=== PATIENT | female | born 1985 | race Caucasian/White ===

== ENCOUNTER 2018-02-19 15:03 | Emergency (ER) | payer BC, MEDICAID ==
[~2018-02-19] VITALS: Ht 157.5 cm; Wt 67.0 kg
[~2018-02-19 15:03] MED LIST: METF500T PO; RANI-366 PO
[2018-02-19 15:57] LABS: BASOPHILS % (AUTO) 0.5 % (0-1); EOSINOPHILS % (AUTO) 0.8 % (0-6); HEMATOCRIT 42.3 % (35.0-45.0); HEMOGLOBIN 13.9 g/dl (12.0-16.0); LYMPHOCYTES # (AUTO) 0.6 X10'3 (1.1-4.8); LYMPHOCYTES % (AUTO) 12.7 % (21-51); MEAN CORPUSCULAR HEMOGLOBIN 26.4 PG (27.0-31.0); MEAN CORPUSCULAR HGB CONC 32.9 % (33.0-36.5); MEAN CORPUSCULAR VOLUME 80.3 FL (78-98); MEAN PLATELET VOLUME 10.2 FL (7.4-10.4); MONOCYTES # (AUTO) 0.3 X10'3 (0-0.9); MONOCYTES % (AUTO) 6.1 % (2-12); NEUTROPHILS # (AUTO) 3.6 X10'3 (1.8-7.7); NEUTROPHILS % (AUTO) 79.9 % (42-75); PLATELET COUNT 166 X10'3 (140-440); RED BLOOD COUNT 5.26 X10'6 (4.20-5.60); RED CELL DISTRIBUTION WIDTH 13.4 % (11.5-14.5); WHITE BLOOD COUNT 4.5 X10'3 (4.5-11.0)
[2018-02-19 15:59] LABS: URINE HCG POSITIVE (NEG)
[2018-02-19 16:03] LABS: CLARITY,URINE SLIGHTLY CLOUDY (Clear); COLOR,URINE YELLOW (Yellow); GLUCOSE, URINE >=1000 mg/dl (Neg); KETONES,URINE 40 mg/dl (Neg); LEUKOCYTE ESTERASE ,URINE NEGATIVE (Neg); NITRITES, URINE NEGATIVE (Neg); OCCULT BLOOD,URINE NEGATIVE (Neg); PROTEIN,URINE NEGATIVE (Neg); UROBILINOGEN,URINE 0.2 E.U/dL (0.2-1.0)
[2018-02-19 16:04] LABS: UA COLLECTION TYPE CLN CATCH MIDSTREAM
[2018-02-19 16:10] LABS: ALANINE AMINOTRANSFERASE 26 U/L (12-78); ALBUMIN 3.9 G/DL (3.4-5.0); ALKALINE PHOSPHATASE 63 IU/L (46-116); ANION GAP 8 (8-16); ASPARTATE AMINO TRANSFERASE 17 U/L (10-37); BILIRUBIN,TOTAL 0.5 MG/DL (0.1-1.0); BLOOD UREA NITROGEN 17 MG/DL (7-18); CALCIUM 8.3 MG/DL (8.5-10.1); CHLORIDE 97 MMOL/L (99-107); CREATININE 0.68 MG/DL (0.40-0.90); GLUCOSE 284 MG/DL (70-104); LIPASE < 50 U/L (73-393); POTASSIUM 3.4 MMOL/L (3.5-5.1); SODIUM 132 MMOL/L (135-145); TOTAL CARBON DIOXIDE 26.6 MMOL/L (24-32); TOTAL PROTEIN 7.9 G/DL (6.4-8.2); eGFR > 90 ML/MIN
[2018-02-19 16:11] LABS: MUCUS STRANDS MODERATE /LPF (Neg); SQUAMOUS EPITHELIAL CELL,UR MANY /LPF (FEW)
[2018-02-19 16:12] LABS: BACTERIA,URINE 1+ /HPF (Neg); RBC,URINE 0-2 /HPF (0-2); WBC,URINE 0-4 /HPF (0-4)
[2018-02-19 16:12] LABS: HCG SERUM QL POSITIVE
[2018-02-19 16:23] LABS: PROTHROMBIN TIME 10.7 SECONDS (9.0-12.0)
[2018-02-19] MEDS ORDERED: normal saline 1000ml 1,000 ML IV ONE (17:10)
[2018-02-19] MEDS ORDERED: potassium 10mEq/100ml NS w/LIDOcaine (10mg/bag) IV ONE (17:10)
[2018-02-19] MEDS ORDERED: potassium Cl 20 mEq SR tablet PO ONE (17:10)
[2018-02-19] MEDS ORDERED: metoclopramide 5 mg/ml inj IV ONE (17:35)
[2018-02-19] MEDS ORDERED: normal saline 1000ML IV soln IVB ONE (19:00)
[2018-02-19] MEDS ORDERED: GLYB2.5T4 PO (19:35)
[2018-02-19] MEDS ORDERED: insulin regular, human 10 units/0.1 ml syringe IV ONE (19:50)
[2018-02-19 19:58] VITALS: BP 114/79
[2018-02-19] MEDS ORDERED: diphenhydrAMINE 50 mg/ml inj IM ONE (20:50)
[2018-02-19] MEDS ORDERED: proCHLORperazine 10 MG/2 ml inj IM ONE (20:50)
[2018-02-19] MEDS ORDERED: PROC5TAB56 PO (20:53)
[2018-02-19] MEDS ORDERED: PROM25SU46 RC (20:53)
== END 2018-02-19 20:39 | disposition home or self-care (01) ==
LOC: ER 15:04
DX: O24.911 Unspecified diabetes mellitus in pregnancy, first trimester (principal); E11.65 Type 2 diabetes mellitus with hyperglycemia; O26.891 Other specified pregnancy related conditions, first trimester; R10.10 Upper abdominal pain, unspecified; Z90.49 Acquired absence of other specified parts of digestive tract; Z88.8 Allergy status to other drugs, medicaments and biological substances; Z79.84 Long term (current) use of oral hypoglycemic drugs; Z79.899 Other long term (current) drug therapy; Z3A.01 Less than 8 weeks gestation of pregnancy
CPT/HCPCS: 36415; 80053; 81001; 81025; 82948; 83690; 84703; 85025; 85610; 96361; 96372; 96374; 96375; 99285; J0780; J1200; J1815; J2765; J3480; J7030

== ENCOUNTER 2019-09-04 16:51 | Emergency (ER) | payer MEDICAID ==
[~2019-09-04] VITALS: Ht 154.9 cm; Wt 86.4 kg
[~2019-09-04 16:51] MED LIST changes: +GLYB2.5T4 PO; +PROC5TAB56 PO; +PROM25SU46 RC
[2019-09-04] MEDS ORDERED: normal saline 1000ML IV soln IVB ONE (17:25)
[2019-09-04] MEDS ORDERED: ketorolac tromethamine 15mg/ml inj. IV ONE (17:25)
[2019-09-04 17:51] LABS: BASOPHILS % (AUTO) 0.5 % (0-1); EOSINOPHILS % (AUTO) 0.4 % (0-6); HEMATOCRIT 38.6 % (35.0-45.0); LYMPHOCYTES # (AUTO) 0.5 X10'3 (1.1-4.8); LYMPHOCYTES % (AUTO) 7.6 % (21-51); MEAN CORPUSCULAR HEMOGLOBIN 26.3 PG (27.0-31.0); MEAN CORPUSCULAR HGB CONC 33.8 g/dL (33.0-36.5); MEAN CORPUSCULAR VOLUME 77.9 FL (78-98); MEAN PLATELET VOLUME 9.6 FL (7.4-10.4); MONOCYTES # (AUTO) 0.3 X10'3 (0-0.9); MONOCYTES % (AUTO) 5.3 % (2-12); NEUTROPHILS # (AUTO) 5.5 X10'3 (1.8-7.7); NEUTROPHILS % (AUTO) 86.2 % (42-75); PLATELET COUNT 195 X10'3 (140-440); RED BLOOD COUNT 4.95 X10'6 (4.20-5.60); RED CELL DISTRIBUTION WIDTH 15.1 % (11.5-14.5); WHITE BLOOD COUNT 6.4 X10'3 (4.5-11.0)
[2019-09-04 17:57] LABS: ALANINE AMINOTRANSFERASE 24 U/L (12-78); ALBUMIN 4.1 G/DL (3.4-5.0); ALBUMIN/GLOBULIN RATIO 0.9 (1.1-1.5); ALKALINE PHOSPHATASE 102 IU/L (46-116); ANION GAP 10 (8-16); ASPARTATE AMINO TRANSFERASE 16 U/L (10-37); BILIRUBIN,TOTAL 0.3 MG/DL (0.1-1.0); BLOOD UREA NITROGEN 17 MG/DL (7-18); BUN/CREATININE RATIO 21.8 (6.6-38.0); CALCIUM 8.8 MG/DL (8.5-10.1); CHLORIDE 101 MMOL/L (99-107); CREATININE 0.78 MG/DL (0.40-0.90); GLUCOSE 124 MG/DL (70-104); LIPASE < 50 U/L (73-393); POTASSIUM 3.7 MMOL/L (3.5-5.1); SODIUM 136 MMOL/L (135-145); TOTAL CARBON DIOXIDE 25.5 MMOL/L (24-32); TOTAL PROTEIN 8.8 G/DL (6.4-8.2); eGFR 85 ML/MIN
[2019-09-04 18:22] LABS: CLARITY,URINE CLEAR (Clear); COLOR,URINE YELLOW (Yellow); GLUCOSE, URINE NEGATIVE (Neg); KETONES,URINE NEGATIVE (Neg); LEUKOCYTE ESTERASE ,URINE SMALL (Neg); NITRITES, URINE NEGATIVE (Neg); OCCULT BLOOD,URINE NEGATIVE (Neg); PROTEIN,URINE NEGATIVE (Neg); UROBILINOGEN,URINE 0.2 E.U/dL (0.2-1.0)
[2019-09-04 18:33] LABS: UA COLLECTION TYPE CLN CATCH MIDSTREAM
[2019-09-04 18:34] LABS: BACTERIA,URINE FEW /HPF (Neg); RBC,URINE NONE SEEN /HPF (0-2); SQUAMOUS EPITHELIAL CELL,UR FEW /LPF (FEW)
[2019-09-04] MEDS ORDERED: CefTRIAXone 1000mg IM Kit (w/lidocaine diluent) IM ONE (19:30)
[2019-09-04 19:32] VITALS: BP 116/68
[2019-09-04] MEDS ORDERED: CEPH-572 PO (19:33)
[2019-09-04] MEDS ORDERED: ONDA4TAB6 PO (19:46)
== END 2019-09-04 19:49 | disposition home or self-care (01) ==
LOC: ER 16:52
DX: N39.0 Urinary tract infection, site not specified (principal); R11.2 Nausea with vomiting, unspecified; E11.9 Type 2 diabetes mellitus without complications; Z90.49 Acquired absence of other specified parts of digestive tract; Z98.890 Other specified postprocedural states; Z88.6 Allergy status to analgesic agent; Z79.84 Long term (current) use of oral hypoglycemic drugs; Z79.899 Other long term (current) drug therapy
CPT/HCPCS: 36415; 80053; 81001; 82948; 83690; 85025; 87088; 87502; 87503; 96372; 96374; 99284; J0696; J1885; J7030

== ENCOUNTER 2020-12-07 07:27 | Day surgery (SDC) | payer MEDICAID ==
[2020-11-30 12:08] LABS: BASOPHILS % (AUTO) 0.4 % (0-1); EOSINOPHILS # (AUTO) 0.1 X10'3 (0-0.9); EOSINOPHILS % (AUTO) 1.1 % (0-6); LYMPHOCYTES # (AUTO) 1.8 X10'3 (1.1-4.8); LYMPHOCYTES % (AUTO) 28.3 % (21-51); MEAN CORPUSCULAR HEMOGLOBIN 25.9 PG (27.0-31.0); MEAN CORPUSCULAR VOLUME 78.4 FL (78-98); MEAN PLATELET VOLUME 9.3 FL (7.4-10.4); MONOCYTES # (AUTO) 0.5 X10'3 (0-0.9); MONOCYTES % (AUTO) 7.6 % (2-12); NEUTROPHILS # (AUTO) 3.9 X10'3 (1.8-7.7); NEUTROPHILS % (AUTO) 62.6 % (42-75); PRE OP HEMOGLOBIN 12.2 g/dL (12.0-16.0); PRE OP PLATELET COUNT 232 X10'3 (140-440); RED BLOOD COUNT 4.72 X10'6 (4.20-5.60)
[2020-11-30 12:18] LABS: CLARITY,URINE SLIGHTLY CLOUDY (Clear); COLOR,URINE STRAW (Yellow); GLUCOSE, URINE NEGATIVE (Neg); KETONES,URINE NEGATIVE (Neg); LEUKOCYTE ESTERASE ,URINE SMALL (Neg); NITRITES, URINE NEGATIVE (Neg); OCCULT BLOOD,URINE NEGATIVE (Neg); PROTEIN,URINE NEGATIVE (Neg); UROBILINOGEN,URINE 0.2 E.U/dL (0.2-1.0)
[2020-11-30 12:23] LABS: HEMOGLOBIN A1C 7.4 % (4.5-6.2)
[2020-11-30 12:24] LABS: UA COLLECTION TYPE CLN CATCH MIDSTREAM
[2020-11-30 12:25] LABS: BACTERIA,URINE FEW /HPF (Neg); RBC,URINE 0-2 /HPF (0-2); SQUAMOUS EPITHELIAL CELL,UR FEW /LPF (FEW); WBC,URINE 0-4 /HPF (0-4)
[2020-11-30 12:41] LABS: ALBUMIN 3.9 G/DL (3.4-5.0); ALBUMIN/GLOBULIN RATIO 0.8 (1.1-1.5); ALKALINE PHOSPHATASE 72 IU/L (46-116); BLOOD UREA NITROGEN 20 MG/DL (7-18); CALCIUM 9.4 MG/DL (8.5-10.1); CHLORIDE 102 MMOL/L (99-107); PRE OP ALT 19 U/L (30-65); PRE OP ANION GAP 8 (8-16); PRE OP AST 11 U/L (10-37); PRE OP BILIRUB, TOTAL 0.3 MG/DL (0.0-1.0); PRE OP GLUCOSE 108 MG/DL (70-104); PRE OP POTASSIUM 3.8 MMOL/L (3.4-5.1); PRE OP SODIUM 135 MMOL/L (135-145); TOTAL CARBON DIOXIDE 25.5 MMOL/L (24-32); TOTAL PROTEIN 9.1 G/DL (6.4-8.2); eGFR 82 ML/MIN
[2020-11-30 12:58] LABS: HCG SERUM QL NEGATIVE
[2020-12-07] VITALS (18 sets, daily range): BP systolic 108–144; BP diastolic 54–78
[~2020-12-07] VITALS: Ht 154.9 cm; Wt 88.8 kg
[~2020-12-07 07:27] MED LIST changes: +ACET-1025 PO; +CHOL50004 PO; -GLYB2.5T4 PO; +INSU100C10 SQ; +INSU100I31 SQ; +LEVO25TA7 PO; +LORA10TA7 PO; -METF500T PO; -PROC5TAB56 PO; -PROM25SU46 RC; -RANI-366 PO; +ceFOXitin 2GM-NS 100mL ADDvant 100 ML IV ONE; +famotidine 20mg tablet PO ONE; +ringers solution, lacted 1,000 ML IV SCH
--- NOTE | 2020-12-07 08:15 | NUR ---
MD BARRERA NOTIFIED OF BG 200 AT [id number]. PT. DRANK JUICE THIS MORNING AT 0545 IN FEAR OF BG DROPPING TOO LOW. WILL RECHECK AT 0840. Addendum: 12/07/20 at 0835 by Katherine Fontana RN Amended: Links added.
--- NOTE | 2020-12-07 08:40 | NUR ---
BG 192. HOLLY DAVIS. NO NEW ORDERS NOTED. Addendum: 12/07/20 at 0844 by Katherine Fontana RN Amended: Links added.
[2020-12-07] MEDS ORDERED: neomy sulf/polymyxin B sulf. GU irrigation 1ml amp IR ONE (09:14)
[2020-12-07] MEDS ORDERED: BUPIVAcaine HCl 0.25%/EPInephrine 1:200,000 inj. 10 ML VIAL ONE (09:14)
[2020-12-07] MEDS ORDERED: vasoPRESSIN 20 units/ml inj. ONE (09:14)
[2020-12-07] MEDS ORDERED: BUPIVAcaine/PF 2.5 mg/ml (0.25%) 30ml vial ONE (09:14)
[2020-12-07] MEDS ORDERED: sevoflurane 250ml liquid IH ONE (10:25)
[2020-12-07] MEDS ORDERED: morphine 4 MG/ML inj SYRINge IV PRN (10:25)
[2020-12-07] MEDS ORDERED: morphine 2 MG/ML inj. syringe IV PRN (10:25)
[2020-12-07] MEDS ORDERED: meperidine/PF 25mg/ml syringe IV PRN ×3 (10:25)
[2020-12-07] MEDS ORDERED: ringers solution, lacted 1,000 ML IV SCH (10:25)
[2020-12-07] MEDS ORDERED: hydrALAZINE 20mg/ml inj. IV PRN (10:25)
[2020-12-07] MEDS ORDERED: acetaminophen 1,000mg/100ml IV 100 ML IV PRN (10:25)
[2020-12-07] MEDS ORDERED: ondansetron/PF 4mg/2ml inj IV PRN ×2 (10:25→12:20)
[2020-12-07] MEDS ORDERED: proCHLORperazine 10 MG/2 ml inj IV PRN (10:25)
[2020-12-07] MEDS ORDERED: labetalol 20mg/4ml (5mg/ml) syringe IV PRN (10:25)
[2020-12-07] MEDS ORDERED: midazolam 1 mg/ML 2ml injection ONE (10:31)
[2020-12-07] MEDS ORDERED: fentaNYL /PF 50mcg/ml 5ml ampule ONE (10:32)
[2020-12-07] MEDS ORDERED: LIDOcaine 2% 5ml jelly ONE (10:32)
[2020-12-07] MEDS ORDERED: propofol inj 20 ML IV ONE (10:59)
[2020-12-07] MEDS ORDERED: neostigmine methylsulfate 1 MG/ML 10ml vial ONE (10:59)
[2020-12-07] MEDS ORDERED: LIDOcaine 2% (20mg/ml) 5ml vial ONE (10:59)
[2020-12-07] MEDS ORDERED: ondansetron/PF 4mg/2ml inj ONE (10:59)
[2020-12-07] MEDS ORDERED: rocuronium 10mg/ml inj IV ONE (10:59)
[2020-12-07] MEDS ORDERED: glycopyrrolate 0.2mg/ml inj ONE (11:00)
[2020-12-07] MEDS ORDERED: dexamethasone sod phosphate 4mg/ml inj. ONE (11:00)
[2020-12-07] MEDS ORDERED: glucagon, human recombinant 1mg kit SUBCUT PRN (12:20)
[2020-12-07] MEDS ORDERED: insulin regular, human U-100 3ml vial - multi-dose SQ SCH (12:20)
[2020-12-07] MEDS: ringers solution, lacted 1,000 ML IV SCH ×2 (12:20→23:40)
[2020-12-07] MEDS ORDERED: HYDROcodone/acetaminophen 10/325mg tab PO PRN ×2 (12:20)
[2020-12-07] MEDS ORDERED: LORazepam 2 mg/ml vial IV PRN (12:20)
[2020-12-07] MEDS ORDERED: magnesium hydroxide 30ml (MOM) UD suspension PO PRN (12:20)
[2020-12-07] MEDS ORDERED: dextrose ORAL solution 15 GM/59 ML bottle PO PRN ×2 (12:20)
[2020-12-07] MEDS ORDERED: diphenhydrAMINE 50 mg/ml inj IV PRN (12:20)
[2020-12-07] MEDS ORDERED: dextrose 50%-water 50ml dispensing syringe IV PRN ×2 (12:20)
[2020-12-07] MEDS ORDERED: mag hydrox/Alum hydrox/simeth 30ml oral suspension PO PRN (12:20)
[2020-12-07] MEDS ORDERED: normal saline 500ml IV soln 500 ML IV PRN (12:20)
[2020-12-07] MEDS ORDERED: LORazepam 1 MG tablet PO PRN (12:20)
[2020-12-07] MEDS ORDERED: metoclopramide 5 mg/ml inj IV PRN (12:20)
[2020-12-07] MEDS ORDERED: MESSAGE TO PHARMACY PO ONE (12:20)
[2020-12-07] MEDS ORDERED: temazepam 15mg capsule PO PRN (12:20)
--- NOTE | 2020-12-07 12:28 | NUR ---
Received from OR via SURGICAL BED, accompanied by Anesthesiologist HOLLY and report given by Anesthesiolgist.PATIENT WITH 20G PIV IN RIGHT UE RUNNING LR AT 100. ROLLINS CATHETER IN PLACE. 3 LAP SITES TO ADOMEN WITH KAITLIN PAD IN PLACE. NO DRAINAGE PRESENT. BG UPON ARRIVAL IS 127. MD AWARE Addendum: 12/07/20 at 1242 by Kyrie Desai RN, RN Amended: Links added.
--- NOTE | 2020-12-07 13:58 | NUR ---
TRANSFER: PATIENT HAS MET ALL CRITERIA FOR TRANSFER TO THE SURGICAL/[facility]/PCU/ORTHO/ICU FLOOR. VSS. DRESSINGS INTACT. BED LOW, CALL LIGHT PRESENT AND 2 RAILS UP. RN PRESENT TO ACCEPT CARE OF PATIENT AND REPORT HAS BEEN CALLED. ALL QUESTIONS ANSWERED TO ACCEPTING RN. NISHANT GUTIERREZ PRESENT TO ACCEPT CARE. STILL WITH NAUSEA AND SENSATION TO HAVE A BM...DESPITE EFFORTS ON BEDPAN. Addendum: 12/07/20 at 1412 by Kyrie Plummer - NISHANT RN Amended: Links added.
[2020-12-07] MEDS: ketorolac trometh. 30mg/ml inj. IV PRN ×2 (14:19→21:44)
--- NOTE | 2020-12-07 18:22 | NUR ---
Problems reprioritized. Patient report given, questions answered & plan of care reviewed with nathan tao.
--- NOTE | 2020-12-07 18:22 | NUR ---
Patient in room ORTHO 4023. I have received report from NISHANT Sanchez and had the opportunity to ask questions and assume patient care.
[2020-12-07] MEDS: insulin Lispro (HumaLOG) vial - multi-dose SQ SCH (19:00)
[2020-12-07] MEDS: docusate sod 100mg capsule PO SCH (19:02)
[2020-12-07] MEDS ORDERED: insulin glargine (Lantus) pen - multi-dose SQ SCH ×2 (21:00)
[2020-12-08 02:00] VITALS: BP 123/71
[2020-12-08] MEDS: ringers solution, lacted 1,000 ML IV SCH (05:55)
[2020-12-08 06:00] VITALS: BP 98/52
--- NOTE | 2020-12-08 06:26 | NUR ---
Problems reprioritized. Patient report given, questions answered & plan of care reviewed with NISHANT Story.
--- NOTE | 2020-12-08 06:39 | NUR ---
Patient in room ORTHO 4023. I have received report from Day DILLARD and had the opportunity to ask questions and assume patient care.
[2020-12-08] MEDS: docusate sod 100mg capsule PO SCH (07:32)
[2020-12-08] MEDS ORDERED: enoxaparin 40mg/0.4ml syringe SQ SCH (08:00)
[2020-12-08] MEDS ORDERED: cholecalciferol (vitamin D3) 1,000 unit (25mcg) tablet PO SCH (08:00)
[2020-12-08] MEDS ORDERED: levoTHYROXINE 75mcg tablet PO SCH (08:00)
[2020-12-08] MEDS ORDERED: loratadine 10mg tablet PO SCH (08:00)
[2020-12-08 08:20] LABS: BASOPHILS % (AUTO) 0.3 % (0-1); EOSINOPHILS % (AUTO) 0.1 % (0-6); HEMOGLOBIN 10.6 g/dl (12.0-16.0); LYMPHOCYTES # (AUTO) 1.3 X10'3 (1.1-4.8); LYMPHOCYTES % (AUTO) 16.2 % (21-51); MEAN CORPUSCULAR HEMOGLOBIN 26.1 PG (27.0-31.0); MEAN CORPUSCULAR HGB CONC 33.1 g/dL (33.0-36.5); MEAN CORPUSCULAR VOLUME 78.8 FL (78-98); MEAN PLATELET VOLUME 9.6 FL (7.4-10.4); MONOCYTES # (AUTO) 0.6 X10'3 (0-0.9); MONOCYTES % (AUTO) 7.3 % (2-12); NEUTROPHILS # (AUTO) 6.1 X10'3 (1.8-7.7); NEUTROPHILS % (AUTO) 76.1 % (42-75); PLATELET COUNT 232 X10'3 (140-440); RED BLOOD COUNT 4.05 X10'6 (4.20-5.60)
[2020-12-08 08:26] LABS: ALBUMIN 3.2 G/DL (3.4-5.0); ANION GAP 8 (8-16); BLOOD UREA NITROGEN 17 MG/DL (7-18); BUN/CREATININE RATIO 17.5 (6.6-38.0); CALCIUM 8.5 MG/DL (8.5-10.1); CHLORIDE 100 MMOL/L (99-107); CREATININE 0.97 MG/DL (0.40-0.90); GLUCOSE 265 MG/DL (70-104); POTASSIUM 3.8 MMOL/L (3.5-5.1); SODIUM 136 MMOL/L (135-145); TOTAL CARBON DIOXIDE 28.1 MMOL/L (24-32); eGFR 66 ML/MIN
[2020-12-08] MEDS: insulin Lispro (HumaLOG) vial - multi-dose SQ SCH (09:39)
[2020-12-08 10:00] VITALS: BP 125/57
--- NOTE | 2020-12-08 12:00 | NUR ---
Pt Dc to home with mom and . Pt is A & ox 4 and in no apparent distress. Pt verbalizes understanding of all DC orders and understands the importance of following up with Dr Dillon. Pt already got pain meds pre-op and is eager to go home to her children. Pt's mother is here. Pt's IV removed intact. pt packed and wheeled to the front.
--- NOTE | 2020-12-08 12:00 | NUR ---
Pt Dc to home with and mom. Pt is a & o x4 and in no apparent distress. Pt and mom verbalizes understanding of all DC orders and states Dr Dillon had already given instructions as well. Pt's IV was already out since this NOC shift and pt refused to get a new one. Pt is ready to go home and has zero pain. Dr Dillon called and Dc pt stating she needed to follow up in 2 weeks. Pt packed her stuff and got ready. She was wheeled to the front where mom picked her up.
== END 2020-12-08 11:50 | disposition home or self-care (01) ==
LOC: PAS 07:27 → ORTHO 4S 14:27 → PAS 12-08 11:50
PROVIDERS: ATTEND Obstetrics & Gynecology Obstetrics
DX: D06.9 Carcinoma in situ of cervix, unspecified (principal); N87.1 Moderate cervical dysplasia; D64.9 Anemia, unspecified; M19.90 Unspecified osteoarthritis, unspecified site; F32.9 Major depressive disorder, single episode, unspecified; E11.9 Type 2 diabetes mellitus without complications; G43.909 Migraine, unspecified, not intractable, without status migrainosus; E66.9 Obesity, unspecified; Z68.37 Body mass index [BMI] 37.0-37.9, adult; Z90.49 Acquired absence of other specified parts of digestive tract; Z98.890 Other specified postprocedural states; Z98.51 Tubal ligation status; Z20.822 Contact with and (suspected) exposure to COVID-19; Z79.4 Long term (current) use of insulin; Z79.899 Other long term (current) drug therapy; Z91.040 Latex allergy status; Z88.2 Allergy status to sulfonamides; Z88.8 Allergy status to other drugs, medicaments and biological substances; Z87.891 Personal history of nicotine dependence; Z83.3 Family history of diabetes mellitus; Z82.49 Family history of ischemic heart disease and other diseases of the circulatory system
CPT/HCPCS: 36415; 58552; 80048; 80053; 81001; 82948; 83036; 84443; 84703; 85025; 86885; 86900; 86901; 87088; J0131; J0694; J0780; J1100; J1815; J1885; J2001; J2250; J2405; J2704; J2710; J3010; J3490; J7120; S2900; U0003; U0005; A4314; A4618; A7000; G0378

== ENCOUNTER 2022-04-02 16:18 | Emergency (ER) | payer MEDICAID ==
[~2022-04-02] VITALS: Ht 154.9 cm; Wt 86.4 kg
[~2022-04-02 16:18] MED LIST changes: -ceFOXitin 2GM-NS 100mL ADDvant 100 ML IV ONE; -famotidine 20mg tablet PO ONE; -ringers solution, lacted 1,000 ML IV SCH
[2022-04-02 17:20] VITALS: BP 120/76
[2022-04-02] MEDS ORDERED: PROC-8 PO (17:45)
== END 2022-04-02 17:59 | disposition home or self-care (01) ==
LOC: ER 16:20
DX: S06.0X9A Concussion with loss of consciousness of unspecified duration, initial encounter (principal); E11.9 Type 2 diabetes mellitus without complications; Z90.49 Acquired absence of other specified parts of digestive tract; Z88.2 Allergy status to sulfonamides; Z88.5 Allergy status to narcotic agent; Z79.899 Other long term (current) drug therapy; Z91.040 Latex allergy status; W22.8XXA Striking against or struck by other objects, initial encounter; Y93.89 Activity, other specified; Y92.89 Other specified places as the place of occurrence of the external cause; Y99.8 Other external cause status
CPT/HCPCS: 99282